=== PATIENT | male | born 1990 | race Caucasian/White ===

== ENCOUNTER 2019-06-06 10:06 | Emergency (ER) | payer MEDICAID, SELFPAY ==
--- NOTE | ~2019-06-06 | CT_ITS ---
EXAMINATION: CT abdomen pelvis wo con DATE: 06/06/2019 11:45 INDICATION: Left nephrolithiasis seen on study at outside institution 2 weeks prior. Left lower quadr ant abdominal pain. TECHNIQUE: Computed tomography (CT) of the abdomen and pelvis was performed without intravenous contr ast. Automated exposure control and iterative reconstruction technique were employed. The dose-length product was 865.14 mGy-cm. COMPARISON: None FINDINGS: Lung bases are clear. Visualized inferior heart is normal. No pericardial or pleural effusion. Liver, gallbladder, spleen, pancreas and bilateral adrenal glands are normal. 2 mm nonobstructing stone in an upper pole calyx of the left kidney. The bilateral kidneys and ureters are otherwise normal with n o other urolithiasis, hydroureteronephrosis or perinephric/ureteral stranding. Bladder is normal. Healy els including the appendix are normal. No free intraperitoneal gas or fluid. No pathologically enlarg ed abdominal or pelvic lymphadenopathy. Bones are unremarkable. IMPRESSION: 1. 2 mm nonobstructing left renal stone. Reviewed, dictated and finalized at location [facility] [employer]
[2019-06-06 10:42] VITALS: BP 141/80; PULSE 85; RESP 17; TEMP 36.8; O2SAT 96
[2019-06-06 11:05] LABS: Basophils Absolute Auto 0.06 K/mm3 (0.00-0.10); Basophils Percent Auto 0.7 % (0.0-1.0); Eosinophils Absolute Auto 0.36 K/mm3 (0.02-0.50); Eosinophils Percent Auto 4.2 % (1.0-6.0); Hematocrit 44.9 % (40.0-54.0); Hemoglobin 15.3 g/dL (14.0-18.0); Immature Granulocyte Absolute 0.04 K/mm3 (0.00-0.00); Immature Granulocyte Percent A 0.5 % (0.0-0.0); Lymphocytes Percent Auto 30.6 % (18.0-42.0); Mean Corpuscular HGB Conc 34.1 g/dL (32.0-36.0); Mean Corpuscular Hemoglobin 30.6 pg (27.0-31.0); Mean Corpuscular Volume 89.8 fL (78.0-102.0); Mean Platelet Volume 10.7 fl (8.7-11.0); Monocytes Absolute Auto 1.01 K/mm3 (0.10-0.90); Monocytes Percent Auto 11.9 % (2.0-11.0); Neutrophils Absolute Auto 4.4 K/mm3 (1.7-7.2); Neutrophils Percent Auto 52.1 % (50.0-70.0); Platelet Count Result 228 K/mm3 (150-420); Red Cell Distribution Width 12.9 % (11.6-14.4); White Blood Count 8.5 K/mm3 (4.8-10.8)
[2019-06-06 11:07] LABS: Add Urine Microscopic? YES; Appearance Urine Clear (Clear); Bilirubin Urine Negative (Negative); Blood Urine Negative (Negative); Color Urine Yellow (Yellow); Glucose Urine UA 1+ (Negative); Ketones Urine Negative (Negative); Leukocyte Esterase Ur Negative LEU/UL (Negative); Nitrate Urine Negative (Negative); Protein Urine Negative (Negative); Specific Grav Ur 1.025 (1.010-1.020); Urobilinogen Urine 0.2 mg/dL (0.2-1.0)
[2019-06-06 11:18] LABS: Bacteria Urine None seen /hpf; RBC Urine 0-2 /hpf (0-2); WBC Urine 0-3 /hpf (0-3)
--- NOTE | 2019-06-06 11:22 | ED.ABDPAIN ---
HPI - Abdominal Pain General Chief Complaint: Abdominal Pain Stated Complaint: pain in L lower abd area Time Seen by Provider: 06/06/19 10:45 Source: patient Mode of arrival: ambulatory Limitations: no limitations History of Present Illness HPI narrative: Gutierrez is a 29-year-old male patient. he presents ambulatory to the emergency room. He states that he has had some left lower quadrant pain since yesterday. It is intermittent and sharp. Right now he is not having much pain. He denies any nausea vomiting. At times the pain can get up to 7 or 8. As noted above, currently he is not having much pain. Gutierrez also also states that 2 weeks ago he was at [facility] in [place], [place] . He states that he had gone there for the same problem of left lower quadrant pain. He states that he had a CT scan done. He is was told that he had a small stone in the left kidney. He says that no other tests were done. He had no blood or urine tests. He was then discharged home. He then went to the clinic in [place]. He had some blood tests done. The clinic called him and told him that his liver enzymes are somewhat elevated have. Because of this reason he came to the emergency room. He has no nausea. He has no vomiting. He has no diarrhea. He denies any urinary symptoms. He has no hematuria or dysuria. No flank pain. Patient has been previously healthy. MD elicited complaint: abdominal pain Pertinent past history: none and other ( See HPI narrative of) Onset (ago): day(s) ( One day. See HPI narrative for details) Pain Consistency: intermittent and other ( currently not having pain.) Location: LLQ Severity: mild Quality: sharp Radiation: none Migration to: no migration Exacerbating factors: nothing Relieving factors: other ( Pain is intermittent and spontaneously gets better.) Context: confirms other ( No injury.) Associated symptoms: denies other symptoms and other ( No nausea or vomiting. No dysuria or hematuria.) Treatments prior to arrival: other ( None) Related Data Home Medications Medication Instructions Recorded Confirmed No Home Medications 06/06/19 06/06/19 Allergies Allergy/AdvReac Type Severity Reaction Status Date / Time No Known Allergies Allergy Unverified 10/19/13 08:12 [facility] Past Medical History Medical History (Updated 06/06/19 @ 11:29 by Sylvester Peng MD) Drug abuse Surgical History Surgical History (Updated 06/06/19 @ 11:30 by Sylvester Peng MD) No significant past surgical history Family History Family History (Updated 06/06/19 @ 11:31 by Sylvester Peng MD) Mother Alcohol abuse Father Alcohol abuse Social History Social History (Updated 06/06/19 @ 11:33 by Sylvester Peng MD) Smoking packs per day: 1 Smoking cigarettes per day: 20.0 Years smoked: 15 Smoking pack-years: 15.00 Alcohol use details: denies alcohol abuse Substance use: former Other substance usage details: metha/ marijuana fo5 yrs. Treated [facility] Vital Signs Vital signs: Vital Signs Temperature 36.8 C 06/06/19 10:42 Pulse Rate 85 06/06/19 10:42 Respiratory Rate 17 06/06/19 10:42 Blood Pressure 141/80 H 06/06/19 10:42 Pulse Oximetry 96 06/06/19 10:42 Temperature 36.8 C 06/06/19 10:42 Pulse Rate 85 06/06/19 10:42 Respiratory Rate 17 06/06/19 10:42 Blood Pressure 141/80 H 06/06/19 10:42 Pulse Oximetry 96 06/06/19 10:42 MDM - Abdominal Pain Lab Data Result diagrams: 06/06/19 11:01 06/06/19 11:00 Labs: Lab Results 06/06/19 06/06/19 06/06/19 Range/Units 11:00 11:00 11:01 WBC 8.5 (4.8-10.8) K/mm3 RBC 5.00 (4.70-6.10) M/mm3 Hgb 15.3 (14.0-18.0) g/dL Hct 44.9 (40.0-54.0) % MCV 89.8 (78.0-102.0) fL MCH 30.6 (27.0-31.0) pg MCHC 34.1 (32.0-36.0) g/dL RDW 12.9 (11.6-14.4) % Plt Count 228 (150-420) K/mm3 MPV 10.7 (8.7
[2019-06-06 11:25] LABS: Alanine Aminotransferase 49 U/L (16-63); Albumin Level 4.2 g/dL (3.4-5.0); Alkaline Phosphatase 76 U/L (46-116); Anion Gap 12.2 mmol/L (7-16); Aspartate Amino Transferase 26 U/L (15-37); Bilirubin,Total 0.2 mg/dL (0.00-1.00); Blood Urea Nitrogen 17 mg/dL (7-18); Calcium 8.6 mg/dL (8.5-10.1); Carbon Dioxide 28 mmol/L (21-32); Chloride 104 mmol/L (98-108); Estimated Glomerular Filt Rate > 60; Glucose 93 mg/dL (70-99); Lipase 62 U/L (73-393); Osmolality Calculated 291 mOsm/kg (285-295); Potassium 4.2 mmol/L (3.5-5.1); Sodium 140 mmol/L (136-145)
[2019-06-06 12:51] VITALS: BP 140/76; PULSE 77; O2SAT 100
== END 2019-06-06 12:51 | disposition home or self-care (01) ==
PROVIDERS: Emergency Provider Surgery
DX: R10.9 Unspecified abdominal pain (principal)
CPT/HCPCS: 36415; 74176; 80053; 81001; 83690; 85025; 99282; 99284